=== PATIENT | female | born 1965 | race Caucasian/White ===

== ENCOUNTER 2024-05-27 18:49 | Emergency (ER) | payer SELFPAY ==
[2024-05-27 18:58] VITALS: BP 114/71; PULSE 66; RESP 16; TEMP 36.6; O2SAT 98; BMI 23.9
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
--- NOTE | 2024-05-27 19:06 | DI.RAD.S_ITS ---
PROCEDURE: XR RIBS LT MIN 3V W CXR1V INDICATIONS: fall/pain TECHNIQUE: 2 views of the ribs were acquired, along with a single view chest. COMPARISON: [facility], CR, XR SHOULDER LT MIN 2V, 05/27/2024, 19:12. FINDINGS: Surgical changes and devices: None. Bones and chest wall: No fractures or dislocations. No suspicious bony lesions. Overlying soft tissues appear unremarkable. Lungs and pleura: No pleural effusions or pneumothorax. Lungs appear clear. Mediastinum: Mediastinal contours appear normal. Heart size is normal. IMPRESSION: No displaced rib fracture or pneumothorax. Dictated by: Jose Ramon Alas M.D. on 05/27/2024 at 20:05 Approved by: Jose Ramon Alas M.D. on 05/27/2024 at 20:06
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
[2024-05-27 19:53] LABS: Add Manual Diff / Slide Review NO; Basophils Absolute Auto 0 /uL (0-100); Basophils Percent Auto 0.9 % (0-2); Eosinophils Absolute Auto 200 /uL (0-450); Eosinophils Percent Auto 4.3 % (2-4); Hematocrit 35.2 % (36-46); Lymphocytes Absolute Auto 900 /uL (1100-4500); Lymphocytes Percent Auto 22.2 % (25-40); Mean Corpuscular HGB Conc 34.1 % (30-36); Mean Corpuscular Volume 85.1 fL (80-100); Monocytes Absolute Auto 500 /uL (0-900); Monocytes Percent Auto 12.2 % (3-14); Neutrophils Absolute Auto 2500 /uL (1500-7000); Neutrophils Percent Auto 60.4 % (50-75); Platelet Count 101 X10^3/uL (150-400); Red Blood Cell Count 4.14 X10^6/uL (4.0-5.2); Red Cell Distribution Width 16.7 % (11.6-14.8); White Blood Cell Count 4.2 X10^3/uL (4.5-11.0)
[2024-05-27 19:58] VITALS: PULSE 61; O2SAT 97
[2024-05-27 19:59] VITALS: PULSE 62; O2SAT 97
[2024-05-27 20:00] VITALS: BP 106/66; PULSE 61; RESP 16; O2SAT 97
[2024-05-27 20:15] LABS: Alanine Aminotransferase 40 IU/L (<35); Albumin 4.3 g/dL (3.5-5.0); Albumin Globulin Ratio 1.5 (1.0-2.8); Alkaline Phosphatase 101 U/L (38-126); Aspartate Aminotransferase 40 IU/L (14-36); BUN Creatinine Ratio 20.3 (6-22); Bilirubin Total 0.8 mg/dL (0.2-1.3); Blood Urea Nitrogen 15 mg/dL (7-17); Calcium 9.6 mg/dL (8.4-10.2); Carbon Dioxide 27 mmol/L (22-32); Chloride 105 mmol/L (98-107); Estimated Glomerular Filt Rate > 60 mL/min (>60); Globulin 2.8 g/dL (1.7-4.1); Glucose 98 mg/dL (70-100); HEMOLYSIS < 15 (0-50); Potassium 3.7 mmol/L (3.4-5.1); Sodium 138 mmol/L (137-145); Total Protein 7.1 g/dL (6.3-8.2)
--- NOTE | 2024-05-27 20:23 | PC.NURSE ---
Pt taken to imaging via stretcher with tech
[2024-05-27 21:43] VITALS: BP 98/53; PULSE 78; RESP 16; TEMP 36.6; O2SAT 98
== END 2024-05-27 21:44 | disposition home or self-care (01) ==
PROVIDERS: Emergency Provider Emergency Medicine
DX: S36.039A Unspecified laceration of spleen, initial encounter (principal); M25.512 Pain in left shoulder; V19.9XXA Pedal cyclist (driver) (passenger) injured in unspecified traffic accident, initial encounter
CPT/HCPCS: 36415; 71101; 73030; 74177; 80053; 85025; 99283; 99284